=== PATIENT | female | born 1950 | race Caucasian/White ===

== ENCOUNTER 2023-04-24 14:20 | Emergency (ER) | payer MEDICARE ==
[~2023-04-24] VITALS: Ht 167.6 cm; Wt 76.0 kg
[2023-04-24] MEDS ORDERED: SILVER SULFADIAZINE 1 % TOPICAL CREAM 50GM TOP ONE (14:45)
[2023-04-24] MEDS ORDERED: TETANUS-DIPTH-ACEL PERTUSSIS 0.5ML SYR Tdap IM ONE (14:45)
[2023-04-24] MEDS ORDERED: SILV1CRE82 TOP (14:48)
[2023-04-24 16:30] VITALS: BP 120/71; PULSE 84; RESP 18; TEMP 98.2; O2SAT 99
== END 2023-04-24 16:37 | disposition home or self-care (01) ==
LOC: ER 14:20
DX: T24.102A Burn of first degree of unspecified site of left lower limb, except ankle and foot, initial encounter (principal); T24.101A Burn of first degree of unspecified site of right lower limb, except ankle and foot, initial encounter; T31.0 Burns involving less than 10% of body surface; X12.XXXA Contact with other hot fluids, initial encounter; Y93.89 Activity, other specified; Y92.89 Other specified places as the place of occurrence of the external cause; Y99.8 Other external cause status
CPT/HCPCS: 16020; 90471; 90715